=== PATIENT | female | born 1965 | race Caucasian/White ===

== ENCOUNTER 2018-03-11 09:05 | Day surgery (SDC) | payer OTHER, SELFPAY ==
[2018-03-11] VITALS (7 sets, daily range): BP systolic 133–151; BP diastolic 65–93; PULSE 80–100; RESP 16–18; TEMP 36.2–36.7; O2SAT 97–100; BMI 33.6
--- NOTE | 2018-03-11 | COLBX_PTH ---
PATIENT: JACKELIN KEY LOC: EN U#:[id number] AGE/SX: 52/F ROOM: RE03/11/[address]: Dr. Filomena Freedman MD : 1965 BED: DIS: 03/11/2018 SPEC #: [id number] RECD: 03/11/18 13:53 STATUS: GASTON RELashawn #: [id number] JUDY: 03/11/18 00:[address]: Filomena Freedman DEPT: SURGICAL PATHOLOGY RECD BY: Amilcar Lucio ENTERED: 03/11/18 13:53 SP TYPE: COLON BX OTHR DR: Dr. Allyson Hoang MD Tissues: A - Cecum, NOS B - Transverse colon Procedures: Surgery Specimen Level IV HEADER OPERATION: Colonoscopy PRE-OP DIAGNOSIS: Screening TISSUE SUBMITTED: A ? Cecum polyp biopsy, B ? Transverse colon polyp biopsy MICROSCOPIC DIAGNOSIS A. Cecum polyp, biopsy: Tubular adenoma. B. Transverse colon polyp, biopsy: Hyperplastic polyp. SJ:donna 03/12/18 MICROSCOPIC DESCRIPTION Slides are reviewed. GROSS DESCRIPTION A - Received in fixative is one container labeled with the patient's name and designated cecum polyp biopsy. The specimen consists of two irregular fragments of light fan soft tissue that in aggregate measure 0.8 x 0.3 x 0.1 cm. The specimen is totally submitted in one cassette. B - Received in fixative is one container labeled with the patient's name and designated transverse colon polyp biopsy. The specimen consists of one irregular fragment of light fan soft tissue that measures 0.4 x 0.3 x 0.1 cm. The specimen is totally submitted in one cassette. / ANTIONE:donna 03/11/18 TC:1 CPT: 87445 x2
--- NOTE | 2018-03-11 10:56 | PCM.OPRPT ---
Report of Operation Date of Procedure: 03/11/18 Pre-Operative Diagnosis: Screening for colon cancer Post-Operative Diagnosis: Small sessile polyp of the cecum and transverse colon, internal and external hemorrhoids Surgery/Procedure Performed:: Colonoscopy with biopsy Type of Anesthesia:: MAC Anesthesiologist: Shey Sanders Specimen's removed: 1. Cecal polyp, 2. Transverse colon polyp Estimated Blood Loss (mL): Minimal Description of Procedure: Procedure: Colonoscopy After reviewing the risks benefits, the patient was deemed in satisfactory condition to undergo procedure. After obtaining informed consent, the scope was passed under direct visualization. Throughout the procedure, the patient's blood pressure pulse and position saturations were monitored continuously anesthesia. The colonoscope was introduced through the anus and advanced to the cecum, identified by the IC valve and transillumination. The colonoscopy was performed without difficulty. The patient tolerated procedure well. Quality of bowel prep was good. Findings: The perianal and digital rectal exam revealed internal and external hemorrhoids.. Small sessile cecal polyp in small sessile transverse colon polyp were removed using cold forceps biopsies. Otherwise the colon (entire examined portion) appeared normal. Retroflexed view of the distal rectum and anal verge showed internal hemorrhoids-grade 1 Impression: 1. Small cecal and transverse colon polyp. Removed completely. 2. Internal and external hemorrhoids Recommendations: Await biopsies Repeat colonoscopy in 3-5 years for screening purposes, depending on biopsies - Complications None
--- NOTE | 2018-03-11 10:59 | OP.PCM_ITS ---
Report of Operation Date of Procedure: 03/11/18 Pre-Operative Diagnosis: Screening for colon cancer Post-Operative Diagnosis: Small sessile polyp of the cecum and transverse colon , internal and external hemorrhoids Surgery/Procedure Performed:: Colonoscopy with biopsy Type of Anesthesia:: MAC Anesthesiologist: Shey Sanders Specimen's removed: 1. Cecal polyp, 2. Transverse colon polyp Estimated Blood Loss (mL): Minimal Description of Procedure: Procedure: Colonoscopy After reviewing the risks benefits, the patient was deemed in satisfactory condition to undergo procedure. After obtaining informed consent, the scope was passed under direct visualization. Throughout the procedure, the patient's blood pressure pulse and position saturations were monitored continuously anesthesia. The colonoscope was introduced through the anus and advanced to the cecum, identified by the IC valve and transillumination. The colonoscopy was performed without difficulty. The patient tolerated procedure well. Quality of bowel prep was good. Findings: The perianal and digital rectal exam revealed internal and external hemorrhoids.. Small sessile cecal polyp in small sessile transverse colon polyp were removed using cold forceps biopsies. Otherwise the colon (entire examined portion) appeared normal. Retroflexed view of the distal rectum and anal verge showed internal hemorrhoids -grade 1 Impression: 1. Small cecal and transverse colon polyp. Removed completely. 2. Internal and external hemorrhoids Recommendations: Await biopsies Repeat colonoscopy in 3-5 years for screening purposes, depending on biopsies - Complications None
== END 2018-03-11 11:47 | disposition home or self-care (01) ==
LOC: EN 09:06 → AC 09:07
PROVIDERS: Family Provider Family Medicine; PCP Family Medicine; Visit Provider Surgery
PROC: 0DJD8ZZ Inspection of Lower Intestinal Tract, Via Natural or Artificial Opening Endoscopic (ICD-10-PCS; CPT 45378; principal; 2018-03-11 10:25)
DX: Z12.11 Encounter for screening for malignant neoplasm of colon (principal); D12.0 Benign neoplasm of cecum; K63.5 Polyp of colon; K64.8 Other hemorrhoids; K64.4 Residual hemorrhoidal skin tags; K43.2 Incisional hernia without obstruction or gangrene; F41.9 Anxiety disorder, unspecified; F32.9 Major depressive disorder, single episode, unspecified; F17.200 Nicotine dependence, unspecified, uncomplicated; Z79.899 Other long term (current) drug therapy
CPT/HCPCS: 45380; 88305; J7120; J2405

== ENCOUNTER 2018-04-09 07:44 | Day surgery (SDC) | payer OTHER, SELFPAY ==
[2018-04-09] VITALS (7 sets, daily range): BP systolic 125–144; BP diastolic 61–84; PULSE 79–104; RESP 14–18; TEMP 36.2–36.5; O2SAT 93–98; BMI 34.2
[2018-04-09 08:20] LABS: Hematocrit 47.3 % (37-47); Hemoglobin 15.7 g/dl (12.0-15.0); Mean Corp Hgb Conc 33.2 g/gl (32-36); Mean Corpuscular Hgb 29.9 pg (27.0-32.0); Mean Corpuscular Volume 90.1 fL (81-99); Mean Platelet Vol. 10.3 fl (6.2-12.0); Platelet Count 258 K/mm3 (150-450); RBC Distribution Width CV 13.5 % (11.6-14.6); RBC Distribution Width SD 43.9 fl (35.1-43.9); Red Blood Count 5.25 M/mm3 (4.2-5.4); White Blood Count 8.1 K/mm3 (4.4-11.0)
[2018-04-09 08:25] LABS: Scan Indicated on CBC? Y/N NO
--- NOTE | 2018-04-09 09:07 | PCM.HP.STD ---
History of Present Illness Date of Admission: 04/09/18 The patient is a 52 year old F presents for laparoscopic incisional hernia repair and umbilical hernia repair with mesh. Patient states she has not been having much problems with her ventral hernia recently. She did complete her colonoscopy which showed tubular adenoma at the cecum and a hyperplastic polyp at the transverse colon. Past Medical History Medical History: Medical History (Last Updated 02/26/18 @ 14:44 by Delphine Villalpando) Umbilical hernia K42.9 Allergies No Known Allergies Allergy (Verified 04/09/18 08:02) Home Medications: Ambulatory Orders Medication Instructions Recorded Venlafaxine XR [Effexor Xr] 75 mg PO DAILY 04/28/14 Surgical History: Surgical History (Last Updated 02/26/18 @ 14:44 by Delphine Villalpando) History of hysterectomy Z90.710 History of laparoscopic cholecystectomy Z90.49 Smoking Status: Current every day smoker Review of Systems Constitutional: Denies: Chills, Fever Eyes: Denies: Blurred vision HEENT: Denies: Difficulty Swallowing Cardiovascular: Denies: Chest Pain Respiratory: Denies: Shortness of breath at rest Gastrointestinal: Denies: Constipation, Nausea, Vomiting Genitourinary: Denies: Dysuria VTE Information - Inpt Only VTE Present on Admission: Yes VTE Mechan Device Prophylaxis: SCD's VTE Pharm Prophylaxis ordered?: No Reason prophylaxis not ordered:: Treatment Not Indicated - Physical Exam General: Alert, Oriented x3, Cooperative, No apparent distress HEENT: Atraumatic, Normocephalic Lungs: Normal air movement Cardiovascular: Regular rate Abdomen: Soft, Non Tender - No guarding or rebound, Non-Distended, Passing Flatus, Hernia - Superior umbilical ventral hernia, reducible Extremities: No clubbing, No cyanosis, No edema Vital Signs Temp Pulse Resp BP Pulse Ox 97.3 F L 81 18 143/61 H 96 04/09/18 08:05 04/09/18 08:05 04/09/18 08:05 04/09/18 08:05 04/09/18 08:05 Oxygen Delivery Method Room Air Weight: 224 lb 13.944 oz Body Mass Index (BMI) 34.2 Laboratory Tests Past 24 Hrs 04/09/18 08:00 WBC 8.1 RBC 5.25 Hgb 15.7 H Hct 47.3 H MCV 90.1 MCH 29.9 MCHC 33.2 RDW 13.5 RDW Differential 43.9 Plt Count 258 MPV 10.3 Assessment/Plan 52-year-old female with incisional and umbilical hernia. 1. Plan for laparoscopic incisional and umbilical hernia repair with mesh. Discussed the procedures including risk but not limited to infection (requiring mesh removal), injury to another organ (small bowel, etc.), seroma, hematoma, bleeding, and anesthesia. Patient and her have no further questions at this time. Filomena Freedman M.D. Pager: [phone] [facility] [address] [place] [address], [address] [place] [address] Office: [phone]
--- NOTE | 2018-04-09 09:11 | HP.PCM_ITS ---
History of Present Illness Date of Admission: 04/09/18 The patient is a 52 year old F presents for laparoscopic incisional hernia repair and umbilical hernia repair with mesh. Patient states she has not been having much problems with her ventral hernia recently. She did complete her colonoscopy which showed tubular adenoma at the cecum and a hyperplastic polyp at the transverse colon. Past Medical History Medical History: Medical History (Last Updated 02/26/18 @ 14:44 by Delphine Villalpando) Umbilical hernia K42.9 Allergies No Known Allergies Allergy (Verified 04/09/18 08:02) Home Medications: Ambulatory Orders Medication Instructions Recorded Venlafaxine XR [Effexor Xr] 75 mg PO DAILY 04/28/14 Surgical History: Surgical History (Last Updated 02/26/18 @ 14:44 by Delphine Villalpando) History of hysterectomy Z90.710 History of laparoscopic cholecystectomy Z90.49 Smoking Status: Current every day smoker Review of Systems Constitutional: Denies: Chills, Fever Eyes: Denies: Blurred vision HEENT: Denies: Difficulty Swallowing Cardiovascular: Denies: Chest Pain Respiratory: Denies: Shortness of breath at rest Gastrointestinal: Denies: Constipation, Nausea, Vomiting Genitourinary: Denies: Dysuria VTE Information - Inpt Only VTE Present on Admission: Yes VTE Mechan Device Prophylaxis: SCD's VTE Pharm Prophylaxis ordered?: No Reason prophylaxis not ordered:: Treatment Not Indicated - Physical Exam General: Alert, Oriented x3, Cooperative, No apparent distress HEENT: Atraumatic, Normocephalic Lungs: Normal air movement Cardiovascular: Regular rate Abdomen: Soft, Non Tender - No guarding or rebound, Non-Distended, Passing Flatus, Hernia - Superior umbilical ventral hernia, reducible Extremities: No clubbing, No cyanosis, No edema Vital Signs Temp Pulse Resp BP Pulse Ox 97.3 F L 81 18 143/61 H 96 04/09/18 08:05 04/09/18 08:05 04/09/18 08:05 04/09/18 08:05 04/09/18 08:05 Oxygen Delivery Method Room Air Weight: 224 lb 13.944 oz Body Mass Index (BMI) 34.2 Laboratory Tests Past 24 Hrs 04/09/18 08:00 WBC 8.1 RBC 5.25 Hgb 15.7 H Hct 47.3 H MCV 90.1 MCH 29.9 MCHC 33.2 RDW 13.5 RDW Differential 43.9 Plt Count 258 MPV 10.3 Assessment/Plan 52-year-old female with incisional and umbilical hernia. 1. Plan for laparoscopic incisional and umbilical hernia repair with mesh. Discussed the procedures including risk but not limited to infection (requiring mesh removal), injury to another organ (small bowel, etc.), seroma, hematoma, bleeding, and anesthesia. Patient and her have no further questions at this time. Filomena Freedman M.D. Pager: [phone] [facility] [address] [place] [address], [address] [place] [address] Office: [phone]
[2018-04-09] MEDS: Bupivacaine Mpf 0.5% 30 ML VIAL (09:13)
--- NOTE | 2018-04-09 09:20 | DCINST_ITS ---
Discharge Diet: Light diet - advance as tolerated Discharge Activity: May not drive while taking narcotic pain medications. May shower in (days): 1 Lifting Restrictions: no lifting >20 lbs for 4 weeks Call your doctor if your incision/area has: Continuous Slow Oozing, Sudden Increased Bleeding, Increased Pain/ Swelling, Increased Redness, Foul Smelling Discharge, Swelling at the incision site Call your doctor if you observe: Fever of 101 or Higher Additional Instructions: Okay to take ibuprofen along with the [place]. Avoid Tylenol since there is artery Tylenol in the [place]. [place] can cause constipation recommend taking daily stool softener i.e. Colace while taking the pain meds. Recommend starting some MiraLAX in 1-2 days if no bowel movement. If still no bowel movement after taking MiraLAX for a day recommend taking magnesium citrate half the bottle and waiting 4-6 hours if still no results take the other half the bottle. Allergies/Adverse Reactions: Allergies No Known Allergies Allergy (Verified 04/09/18 08:02) Medications to take at Discharge Venlafaxine XR [Effexor Xr] 75 mg PO DAILY 04/28/14 Hydrocodone Bitart/Apap 5-325 [[place] 5MG-325MG] 1 - 2 tablet PO Q6H PRN PRN 3 Days #20 tablet 04/09/18 The following prescriptions were given: Hydrocodone Bitart/Apap 5-325 [[place] 5MG-325MG] 1 - 2 tablet PO Q6H PRN PRN 3 Days #20 tablet PRN Reason: Pain Primary Care Physician: Allyson Hoang MD [Primary Care Provider] - Test Results: Test results from this visit will be discussed in further detail at your follow- up appointment, if applicable. Please Follow Up With: Filomena Freedman MD - after 5PM/weekend call [phone] with any concerns When: call office for appt in 2 weeks Proposed Discharge Date: 04/09/18
[2018-04-09] MEDS: Cefazolin 2 GM in 0.9% Normal Saline 100 ML IV (09:33)
--- NOTE | 2018-04-09 10:43 | PCM.OPRPT ---
Report of Operation Date of Procedure: 04/09/18 Pre-Operative Diagnosis: Ventral, incisional hernia Post-Operative Diagnosis: Supraumbilical ventral hernia Surgery/Procedure Performed:: Laparoscopic ventral hernia repair with mesh kieselguhr regenerator operator: Emilie Frausto Type of Anesthesia:: MAC Anesthesiologist: Pedro Landeros Special Medications: Ancef 2 g IV ?1 Specimen's removed: None Estimated Blood Loss (mL): <10 cc Fluids Replaced: 1000 cc Description of Procedure: Indications this is a 52 year-old female who had a symptomatic ventral hernia and a possible incisional hernia seen on CT at umbilicus. Laparoscopic ventral hernia repair with mesh was elected. Description procedure: The patient was placed on operating table in supine position. General Anesthesia was induced. A timeout was completed verifying correct patient, procedure, site, position, social, and special equipment prior to beginning procedure. The abdomen was prepped and draped in usual sterile fashion. An incision was made in the epigastric midline. The fascia was elevated and incised. The peritoneum was elevated and incised. Entry into the peritoneum was confirmed visually and no bowel was noted in the vicinity of the incision. Cartwright trocar was placed. The abdomen was insufflated with carbon dioxide to a pressure of 12-15 mmHg. Patient tolerated insufflation well. The laparoscope was then inserted and abdomen inspected. No injuries from initial trocar placement were noted. Additional trochars were then inserted in the following locations 5 mm trocar in the left upper quadrant and left lower quadrant. The abdomen was inspected no abnormalities were found. The ventral hernia was inspected and herniated contents removed with gentle pulling and pressure. The hernia defect was approximately 2 x 2 centimeters. This was closed with an 0 PDS in a [id number] after making a stab incision at the skin. The ventral light ST mesh 11.4 cm x 11.4 cm echo mesh was showed chosen for repair. Mesh was rolled into a cylinder in place through the Cartwright trocar. The inflation tubing was grasped with a suture passer in the middle of the hernia defect and pulled up against the abdominal wall. The balloon was deployed and the mesh was laying flat against the abdominal wall. This securestrap stapler was used to secure the mesh in place. The balloon deployment system was removed from the mesh and the abdomen. The mesh was further secured in place. Secondary trochars removed under direct vision. No bleeding was noted the trocar sites. The laparoscope was withdrawn and umbilical trocar removed. The abdomen was allowed to collapse. The fascia of the 12 mm trocar was closed with a beeezz-hs-woeup 0 Vicryl suture. The skin was closed with sutures of 4-0 Monocryl and Steri-Strips. The patient was extubated. The patient tolerated procedure well and was taken to the postanesthesia care unit in stable condition. Grafts/Implants Used: Ventral light ST mesh w echo PS lot [id number] 11.4cmx11.4cm - Complications none
--- NOTE | 2018-04-09 10:48 | OP.PCM_ITS ---
Report of Operation Date of Procedure: 04/09/18 Pre-Operative Diagnosis: Ventral, incisional hernia Post-Operative Diagnosis: Supraumbilical ventral hernia Surgery/Procedure Performed:: Laparoscopic ventral hernia repair with mesh planner/scheduler: Emilie Frausto Type of Anesthesia:: MAC Anesthesiologist: Pedro Landeros Special Medications: Ancef 2 g IV ?1 Specimen's removed: None Estimated Blood Loss (mL): <10 cc Fluids Replaced: 1000 cc Description of Procedure: Indications this is a 52 year-old female who had a symptomatic ventral hernia and a possible incisional hernia seen on CT at umbilicus. Laparoscopic ventral hernia repair with mesh was elected. Description procedure: The patient was placed on operating table in supine position. General Anesthesia was induced. A timeout was completed verifying correct patient, procedure, site, position, social, and special equipment prior to beginning procedure. The abdomen was prepped and draped in usual sterile fashion. An incision was made in the epigastric midline. The fascia was elevated and incised. The peritoneum was elevated and incised. Entry into the peritoneum was confirmed visually and no bowel was noted in the vicinity of the incision. Cartwright trocar was placed. The abdomen was insufflated with carbon dioxide to a pressure of 12-15 mmHg. Patient tolerated insufflation well. The laparoscope was then inserted and abdomen inspected. No injuries from initial trocar placement were noted. Additional trochars were then inserted in the following locations 5 mm trocar in the left upper quadrant and left lower quadrant. The abdomen was inspected no abnormalities were found. The ventral hernia was inspected and herniated contents removed with gentle pulling and pressure. The hernia defect was approximately 2 x 2 centimeters. This was closed with an 0 PDS in a mlxovn-if-gmjns after making a stab incision at the skin. The ventral light ST mesh 11.4 cm x 11.4 cm echo mesh was showed chosen for repair. Mesh was rolled into a cylinder in place through the Cartwright trocar. The inflation tubing was grasped with a suture passer in the middle of the hernia defect and pulled up against the abdominal wall. The balloon was deployed and the mesh was laying flat against the abdominal wall. This securestrap stapler was used to secure the mesh in place. The balloon deployment system was removed from the mesh and the abdomen. The mesh was further secured in place. Secondary trochars removed under direct vision. No bleeding was noted the trocar sites. The laparoscope was withdrawn and umbilical trocar removed. The abdomen was allowed to collapse. The fascia of the 12 mm trocar was closed with a wzqpfj-fr-wfshy 0 Vicryl suture. The skin was closed with sutures of 4- 0 Monocryl and Steri-Strips. The patient was extubated. The patient tolerated procedure well and was taken to the postanesthesia care unit in stable condition. Grafts/Implants Used: Ventral light ST mesh w echo PS lot [id number] 11.4cmx11.4cm - Complications none
[2018-04-09] MEDS: HYDROcodone Bitartrate/Apap 5/325 Tablet PO (12:28)
== END 2018-04-09 13:06 | disposition home or self-care (01) ==
LOC: SDC 07:46 → AC 07:46
PROVIDERS: Anesthesiology; Family Provider Family Medicine; PCP Family Medicine; Visit Provider Surgery
PROC: 0WQF4ZZ Repair Abdominal Wall, Percutaneous Endoscopic Approach (ICD-10-PCS; CPT 49652; principal; 2018-04-09 09:10)
DX: K43.9 Ventral hernia without obstruction or gangrene (principal); F41.9 Anxiety disorder, unspecified; F32.9 Major depressive disorder, single episode, unspecified; F17.200 Nicotine dependence, unspecified, uncomplicated; Z79.899 Other long term (current) drug therapy
CPT/HCPCS: 49652; 85027; 93005; J7120; J2405

== ENCOUNTER → 2019-06-02 | Outpatient (CLI) | payer OTHER, SELFPAY ==
--- NOTE | 2019-06-02 09:29 | BI_ITS ---
MAMMOGRAPHY - BILATERAL SCREENING REASON FOR EXAM: Female, 53 years old. Routine annual screening examination. PERTINENT HISTORY: Non-contributory. TECHNIQUE: Digital bilateral breast samanta (3D mammographic acquisition) in the CC and MLO projections. 2-D mediolateral oblique (MLO) and craniocaudad (CC) views of both breasts were obtained. CAD: Full Field Digital Mammography with Computer Added Detection was performed. COMPARISON: Comparison is made with prior study dated October 11, 2011. FINDINGS: Breast Composition: There are scattered areas of fibroglandular density. There are no dominant masses or suspicious calcifications. No other significant abnormalities are identified. There has been no significant change since the prior study. BI/SCREEN MAMM (CAD) W/SAMANTA BILAT IMPRESSION: Stable bilateral screening mammogram. Yearly follow-up mammogram recommended. (A) ASSESSMENT CATEGORY: BIRADS Category 1: Negative. A letter regarding these results will be sent to the patient by the facility within 30 days. Approximately 10% of breast cancers are not detected by mammography. A normal mammogram should not delay biopsy of a clinically suspicious abnormality. [id number] Electronically Signed: Juan Crockett, at 11:14 EDT , Service support ,
--- NOTE | 2019-06-02 09:34 | BD_ITS ---
STUDY: DUAL ENERGY X-RAY ABSORPTIOMETRY / DXA REASON FOR EXAM: Female, 53 years old. Early menopause. TECHNIQUE: Bone Mineral Density (BMD) measurements of lumbar spine and bilateral hips were obtained. COMPARISON: None. FINDINGS: Lumbar Spine (L1-L4): g/cm2 (1.069) / T-score (-0.9) / Z-score (-0.2) Findings are suggestive of normal bone density with a low fracture risk. Left Femur Total: g/cm2 (0.994) / T-score (-0.1) / Z-score (0.5) Left Femoral Neck: g/cm2 (0.970) / T-score (-0.5) / Z-score (0.5) Right Femur Total: g/cm2 (0.967) / T-score (-0.3) / Z-score (0.3) Right Femoral Neck: g/cm2 (1.003) / T-score (-0.3) / Z-score (0.7) BD/Dexa Bone Density Study IMPRESSION: The patient is considered normal as outlined below according to World Clayton Organization (WHO) criteria with a low fracture risk. Reference Information: The T-score is the number of standard deviations above or below the standard which is normal for young adults at their peak bone mineral density. The World Health Organization (WHO) interprets the T-scores as follows: Above -1 Normal bone density Between -1 and -2.5 Osteopenia Equal to / or below -2.5 Osteoporosis As a practical clinical guideline, osteopenia may be graded as follows: Mild -1 through -1.5 Moderate -1.6 through -2.0 Severe -2.1 through -2.4 The Z-score is the number of standard deviations above or below age-matched controls. A Z-score of less than -1.5 would be considered abnormal. References: 1. NIH Osteoporosis and Related Bone Diseases http://www.osteo.org 2. International Society for Clinical Densitometry http://www.iscd.org 3. National Osteoporosis Foundation http://www.nof.org Electronically Signed: Juan Crockett, at 15:44 EDT , Service support ,
== END | disposition home or self-care (01) ==
LOC: OPBD 09:25
PROVIDERS: Family Provider Family Medicine; PCP Family Medicine; Referring Provider Family Medicine; Visit Provider Family Medicine
DX: Z12.31 Encounter for screening mammogram for malignant neoplasm of breast (principal); Z78.0 Asymptomatic menopausal state
CPT/HCPCS: 77063; 77067; 77080

== ENCOUNTER → 2021-01-12 14:59 | Outpatient (CLI) | payer OTHER, SELFPAY ==
--- NOTE | 2021-01-12 15:14 | BI_ITS ---
MAMMOGRAPHY - BILATERAL SCREENING 3-D TOMOSYNTHESIS REASON FOR EXAM: Female, 55 years old. SCREENING PERTINENT HISTORY: No significant family history. TECHNIQUE: 2-D mammograms and 3-D Tomosynthesis of the breast (s) were performed. CAD was performed. COMPARISON: FINDINGS: The breast composition is composed of scattered fibroglandular density. Scattered benign calcifications are seen. No dense spiculated masses or suspicious microcalcifications are identified. No architectural distortion is identified. There is no skin thickening or retraction. There has been no significant change since the prior study. BI/SCRN MAMM (CAD)W/SAMANTA BILAT IMPRESSION: No mammographic signs of malignancy. Routine yearly mammograms recommended. ASSESSMENT CATEGORY: BIRADS Category 1: Negative. A letter regarding these results will be sent to the patient by the facility within 30 days. FOLLOW UP RECOMMENDATION: Yearly follow up mammogram recommended. (A) Approximately 10% of breast cancers are not detected by mammography. A normal mammogram should not delay biopsy of a clinically suspicious abnormality. Electronically Signed: Harry Schultz MD at 9:09 EDT , Service support ,
== END ==
PROVIDERS: PCP Family Medicine; Referring Provider Family Medicine; Visit Provider Family Medicine
DX: Z12.31 Encounter for screening mammogram for malignant neoplasm of breast (principal)
CPT/HCPCS: 77063; 77067

== ENCOUNTER → 2022-08-02 | Outpatient (CLI) | payer OTHER, SELFPAY ==
--- NOTE | 2022-08-02 09:31 | BI_ITS ---
MAMMOGRAPHY - BILATERAL SCREENING REASON FOR EXAM: Female, 56 years old. Routine annual screening examination. PERTINENT HISTORY: Non-contributory. TECHNIQUE: Digital bilateral breast samanta (3D mammographic acquisition) in the CC and MLO projections. 2-D mediolateral oblique (MLO) and craniocaudad (CC) views of both breasts were obtained. CAD: Full Field Digital Mammography with Computer Added Detection was performed. COMPARISON: Comparison is made with prior study dated 01/12/2021 and 06/02/2019. FINDINGS: Breast Composition: There are scattered areas of fibroglandular density. There are no dominant masses or suspicious calcifications. No other significant abnormalities are identified. There has been no significant change since the prior study. BI/SCRN MAMM (CAD)W/SAMANTA BILAT IMPRESSION: Stable bilateral screening mammogram. Yearly follow-up mammogram recommended. (A) ASSESSMENT CATEGORY: BIRADS Category 1: Negative. A letter regarding these results will be sent to the patient by the facility within 30 days. Approximately 10% of breast cancers are not detected by mammography. A normal mammogram should not delay biopsy of a clinically suspicious abnormality. [id number] Electronically Signed: Juan Crockett MD at 10:22 EST ,
== END | disposition home or self-care (01) ==
LOC: OPBI 09:29
PROVIDERS: PCP Family Medicine; Visit Provider Family Medicine
DX: Z12.31 Encounter for screening mammogram for malignant neoplasm of breast (principal)
CPT/HCPCS: 77063; 77067

== ENCOUNTER 2023-03-31 06:42 | Day surgery (SDC) | payer OTHER, SELFPAY ==
[2023-03-31] VITALS (7 sets, daily range): BP systolic 108–128; BP diastolic 70–89; PULSE 70–100; RESP 16–18; TEMP 36.2–36.8; O2SAT 97–99; BMI 30.4
--- NOTE | 2023-03-31 | COLBX_PTH ---
PATIENT: JACKELIN KEY LOC: EN U#:[id number] AGE/SX: 57/F ROOM: RE03/31/[address]: Dr. Filomena Freedman MD : 1965 BED: DIS: 03/31/2023 SPEC #: [id number] RECD: 03/31/23 10:53 STATUS: GASTON RELashawn #: [id number] JUDY: 03/31/23 00:[address]: Filomena Freedman DEPT: SURGICAL PATHOLOGY RECD BY: Amilcar Lucio ENTERED: 03/31/23 10:53 SP TYPE: COLON BX OTHR DR: Dr. Allyson Hoang MD Tissues: Rectum, NOS Procedures: Surgery Specimen Level IV HEADER OPERATION: Colonoscopy - open access (MAC) PRE-OP DIAGNOSIS: History of colonic polyps TISSUE SUBMITTED: Rectal polyp MICROSCOPIC DIAGNOSIS Rectal polyp, biopsy: Fragments of hyperplastic polyp. AM:donna 04/01/2023 MICROSCOPIC DESCRIPTION Slides are reviewed. GROSS DESCRIPTION Received in fixative is one container labeled with the patient's name and designated rectal polyp. The specimen consists of multiple irregular fragments of light fan soft tissue that in aggregate measure 1.0 x 0.5 x 0.1 cm. The specimen is totally submitted in one cassette. / SJ:rg 03/31/2023 TC:5 CPT: 67060
[2023-03-31] MEDS: Lactated Ringers 1,000 ML 15 ML IV (07:03)
--- NOTE | 2023-03-31 07:25 | HP.PCM_ITS ---
[facility] - General General Date of Service: 03/31/23 [facility] Narrative JACKELIN KEY, is a 57 F who presents for a screening colonoscopy due to history of colon polyps. Patient last colonoscopy was 03/2018 patient had 2 polyps at that time. Patient denies any family history of colon cancer. Patient denies any chronic abdominal pain/nausea/vomiting/reflux. Patient's bowel movements daily denies any blood. [facility] Medical History (Updated 03/31/23 @ 07:[address] Filomena Freedman MD) Alcohol use Anxiety History of colonic polyps Migraine headache Migraine without status migrainosus, not intractable Shortness of breath on exertion Smoker Wears glasses Home Medications venlafaxine 75 mg capsule,extended release 24 hr 75 mg PO DAILY 04/28/14 [History Last Taken 03/31/23] multivitamin 1 tab PO DAILY 01/30/23 [History Last Taken Unknown] sumatriptan succinate 100 mg tablet See Rx Instructions PO .COMPLEX 01/30/23 [History Last Taken Unknown] Allergy/AdvReac Type Severity Reaction Status Date / Time No Known Allergies Allergy Verified 03/25/23 14:53 Family History Mother Diabetes Father Hypertension Surgical History (Updated 03/25/23 @ 15:00 by Katelynn Aviles) History of colonoscopy History of hysterectomy History of laparoscopic cholecystectomy Hx of hernia repair Social History (Updated 01/30/23 @ 16:12 by Krystle Clayton) household members: spouse current occupational status: employed current occupation: [employer] Smoking Status: Current every day smoker tobacco type: cigarettes alcohol intake: never substance use type: does not use Past Medical/Surgical History Planned Operation Planned Operative Procedure/s: CSCOPE OA S.O.S: No Previous Hospitalizations/Surgeries HX Hospitalizations: No HX of Surgeries: CARY TUBAL ABLATION HYSTERECTOMY 2013 Any Problems With Anesthesia: No You/Your Family Experience Fever (Hyperthermia) With Anes: No Cholinesterase deficiency: No Cardiovascular Hx Chest Pain within Last 2 months: No Hx of Irregular Heartbeat and/or Afib: No Hx Heart Attack: No Hx Congestive Heart Failure: No Hx Rheumatic Fever: No Hx Hypertension: No Hx Internal Defibrillator: No Hx Pacemaker: No Hx Cardiac Catheterization: No Hx Cardiac Surgery/Stents/Etc.: No Hx Stress Test: Yes ([facility] >10 YRS AGO, OK PER PT) Hx Pain in Legs when Walking/Leg Cramps: No Respiratory Chronic Cough: No HX of Shortness of Breath: No (ABLE TO WALK UP TWO FLIGHTS OF STAIRS) Hoarseness: No Hx Chronic Obstructive Pulmonary Disease (COPD): No Hx Asthma: No Hx Emphysema: No Hx Sleep Apnea: No CPAP: No BIPAP: No Hx Respiratory Tract Infection/Cold (presently): No Do You Snore Loudly (louder than talking or can be heard): Yes Do You Often Feel Tired/ Fatigued/ Sleepy Dring Daytime?: No Has Anyone Observed You Stop Breathing During Sleep?: No Result (for STOP score): Negative Hx Smoking: Yes (SMOKES 7 CIGS A DAY OR SO) Smoking Status: Current every day smoker Gastrointestinal Hx Gastroesophageal Reflux: No Hx Gastrointestinal Disorders: No Hx Gastrointestinal Bleed: No Hx Ulcer: No Hx Hiatal Hernia: No Difficulty Chewing/Swallowing: No Special diet followed at home: No Hx Unplanned Weight Loss of 20#: No HX Unplanned Weight Gain of 20#: No Neurological Hx Seizures: No HX Syncope/Blackout Spells/Unconsciousness: No Hx Transient Ischemic Attacks (TIA): No Hx Multiple Sclerosis: No Hx Parkinson's Disease: No Hx Head/Neck Injury: No Hx Headaches: No Hx Back Injury/Pain: No Recent Onset of Speech Difficulty: No Restless Legs: No Does patient have nerve stimulator: No Blood Disorder Hx Leukemia: No Bleeding Tendencies: No Hx Deep Vein Thrombosis: No Hx High Cholesterol: No Blood Transmitted Disease: No Hx Hepatitis: No Hx Cirrhosis: No Hx Anemia: No Hx Blood Disorders: No Reproduction : No Is Patient Lactating: No Hx Hysterectomy: Yes Hx Tubal Ligation: Yes Are You Post Menopause: Yes Genitourinary Hx Renal Disease: No Musculoskeletal Hx Arthritis: No Hx Rheumatoid Arthritis: No Hx Gout: No Recent Onset of an Orthopedic Problem: No Endocrine Hx Diabetes: No Thyroid Disease: No Hx Steroid Therapy: No Psycho/Social Hx Substance Use: No Hx Alcohol Use: No Hx Anxiety: Yes Hx Depression: Yes (ON MEDICATION) Mental Illness: No Hx Dementia: No Miscellaneous Hx Cancer: No Recent Exposure to Contagious Disease: No Hx of C-Diff: No Any Loose Teeth: No Allergies No Known Allergies Allergy (Verified 03/25/23 14:53) Discharge Is Pt Admitted From a [facility], or a Residential: No After D/C, Where Do you Plan to Go: Return Home Vital Signs Vital Signs Vital Signs: 03/31/23 07:05 03/31/23 07:05 Temperature 97.8 F Temperature Source Temporal Pulse Rate 100 Respiratory Rate 18 Respiratory Pattern Normal Blood Pressure 128/89 H Blood Pressure Mean 102 Blood Pressure Source Monitor Blood Pressure Position Semi-Fowlers Blood Pressure Location Left Arm Pulse Ox 99 Oxygen Delivery Method Room Air Weight Weight: 200 lb Body Mass Index (BMI) 30.4 Physical Exam Const alert, oriented x3 and no apparent distress HEENT normocephalic and head/scalp atraumatic Resp normal respiratory effort Cardio regular rate GI soft to palpation and non-tender; Negative for non-distended Palpation: Negative for guarding Extremity no clubbing, cyanosis or edema Neuro CN's II-XII intact bilaterally Psych mental status grossly normal Assessment & Plan Assessment/Plan (1) History of colonic polyps: Surgery Risks - Colonoscopy I discussed with the patient the risks of the procedure: Yes Risks Include but are not Limited To: Risks include but are not limited to: Bleeding, perforation requiring further surgery, inability to complete colonoscopy requiring barium enema.
--- NOTE | 2023-03-31 09:10 | OP.COLON_ITS ---
Patient Name: Debbi Diggs Procedure Date: 03/31/2023 8:13 AM Date of : 1965 Age: 57 Procedure: Colonoscopy Indications: High risk colon cancer surveillance: Personal history of adenoma less than 10 mm in size Providers: Filomena Freedman MD Referring MD: Filomena Freedman MD Medicines: Monitored Anesthesia Care Patient Profile: This is a 57 year old female. Last Colonoscopy: 2017. Complications: No immediate complications. Procedure: Pre-Anesthesia Assessment: - Prior to the procedure, a History and Physical was performed, and patient medications and allergies were reviewed. The patient's tolerance of previous anesthesia was also reviewed. The risks and benefits of the procedure and the sedation options and risks were discussed with the patient. All questions were answered, and informed consent was obtained. Prior Anticoagulants: The patient has taken no previous anticoagulant or antiplatelet agents. ASA Grade Assessment: Per anesthesia. After reviewing the risks and benefits, the patient was deemed in satisfactory condition to undergo the procedure. After I obtained informed consent, the scope was passed under direct vision. Throughout the procedure, the patient's blood pressure, pulse, and oxygen saturations were monitored continuously. The pediatric colonoscope was introduced through the anus and advanced to the cecum, identified by the appendiceal orifice, ileocecal valve and palpation. The colonoscopy was performed with ease. The colonoscopy was somewhat difficult due to a tortuous colon. Successful completion of the procedure was aided by changing the patient to a supine position. Scope In: 8:28:37 AM Scope Withdrawal Time 0 hours 13 minutes 36 seconds Scope Out: 8:59:32 AM Total Procedure Duration Time 0 hours 30 minutes 55 seconds Findings: Hemorrhoids were found on perianal exam. Non-bleeding external and internal hemorrhoids were found. The hemorrhoids were small and Grade I (internal hemorrhoids that do not prolapse). Five sessile polyps were found in the rectum. The polyps were less than 5 mm in size. These polyps were removed with a cold biopsy forceps. Resection and retrieval were complete. The exam was otherwise without abnormality. Impression: - Hemorrhoids found on perianal exam. - Non-bleeding external and internal hemorrhoids. - Five less than 5 mm polyps in the rectum, removed with a cold biopsy forceps. Resected and retrieved. - The examination was otherwise normal. Recommendation: - Discharge patient to home. - Resume previous diet. - Continue present medications. - Await pathology results. - Repeat colonoscopy in 5-10 years for surveillance based on pathology results. Procedure Code(s): --- Professional --- 71742, PT, Colonoscopy, flexible; with biopsy, single or multiple Diagnosis Code(s): --- Professional --- Z86.010, Personal history of colonic polyps K64.0, First degree hemorrhoids K62.1, Rectal polyp CPT copyright 2017 [employer]. All rights reserved. The codes documented in this report are preliminary and upon remote coders review may be revised to meet current compliance requirements. MD Filomena Rincon MD 03/31/2023 9:10:32 AM This report has been signed electronically. Number of Addenda: 0 Note Initiated On: 03/31/2023 8:13 AM
--- NOTE | 2023-03-31 09:11 | OP.CCLET_ITS ---
03/31/2023 Allyson Hoang [address] [place] [address] Re : Colonoscopy procedure for Debbi Diggs Dear Dr. Hoang This procedure was performed on Friday, March 31, 2023. My impressions and recommendations are as follows: Impressions : - Hemorrhoids found on perianal exam. - Non-bleeding external and internal hemorrhoids. - Five less than 5 mm polyps in the rectum, removed with a cold biopsy forceps. Resected and retrieved. - The examination was otherwise normal. Recommendations : - Discharge patient to home. - Resume previous diet. - Continue present medications. - Await pathology results. - Repeat colonoscopy in 5-10 years for surveillance based on pathology results. My findings are described in the full procedure note, which is enclosed. If I can be of further assistance, please feel free to contact me at Doctor phone number(s): , Work: . Sincerely, MD Filomena Rincon MD 03/31/2023 9:10:32 AM This report has been signed electronically.
== END 2023-03-31 09:49 | disposition home or self-care (01) ==
LOC: EN 06:44 → AC 06:45
PROVIDERS: PCP Family Medicine; Referring Provider Family Medicine; Visit Provider Surgery
PROC: 0DJD8ZZ Inspection of Lower Intestinal Tract, Via Natural or Artificial Opening Endoscopic (ICD-10-PCS; CPT 45378; principal; 2023-03-31 08:10)
DX: Z12.11 Encounter for screening for malignant neoplasm of colon (principal); K62.1 Rectal polyp; F17.210 Nicotine dependence, cigarettes, uncomplicated; Z86.010 Personal history of colon polyps; Z79.899 Other long term (current) drug therapy; F41.9 Anxiety disorder, unspecified; K64.4 Residual hemorrhoidal skin tags; K64.0 First degree hemorrhoids
CPT/HCPCS: 45380; 88305; J7120; J2405

== ENCOUNTER → 2024-01-28 | Outpatient (CLI) | payer OTHER, SELFPAY ==
--- NOTE | 2024-01-28 15:02 | BI_ITS ---
MAMMOGRAPHY - BILATERAL SCREENING REASON FOR EXAM: Female, 58 years old. Routine annual screening examination. PERTINENT HISTORY: Non-contributory. TECHNIQUE: Digital bilateral breast samanta (3D mammographic acquisition) in the CC and MLO projections. 2-D mediolateral oblique (MLO) and craniocaudad (CC) views of both breasts were obtained. CAD: Full Field Digital Mammography with Computer Added Detection was performed. COMPARISON: Comparison is made with prior study dated August 02, 2022 and January 12, 2021. FINDINGS: Breast Composition: There are scattered areas of fibroglandular density. There are no dominant masses or suspicious calcifications. No other significant abnormalities are identified. There has been no significant change since the prior study. BI/SCRN MAMM (CAD)W/SAMANTA BILAT IMPRESSION: Stable bilateral screening mammogram. Yearly follow-up mammogram recommended. (A) ASSESSMENT CATEGORY: BIRADS Category 1: Negative. A letter regarding these results will be sent to the patient by the facility within 30 days. Approximately 10% of breast cancers are not detected by mammography. A normal mammogram should not delay biopsy of a clinically suspicious abnormality. [id number] Electronically Signed: Juan Crockett MD at 15:43 EDT ,
== END | disposition home or self-care (01) ==
LOC: OPBI 15:02
PROVIDERS: PCP Family Medicine; Referring Provider Family Medicine; Visit Provider Family Medicine
DX: Z12.31 Encounter for screening mammogram for malignant neoplasm of breast (principal)
CPT/HCPCS: 77063; 77067

== ENCOUNTER → 2025-04-08 | Outpatient (CLI) | payer OTHER, SELFPAY ==
[2025-04-08 11:42] LABS: Anion Gap 10 (5-15); BUN 12 mg/dL (4-19); BUN/Creat Ratio 16.3 RATIO (10-20); Calcium,Total 10.1 mg/dL (7.6-11.0); Carbon Dioxide 22.4 mmol/L (21.0-32.0); Chloride 107 mmol/L (98-108); Glucose 101 mg/dL (70-99); Potassium 4.2 mmol/L (3.3-5.1)
[2025-04-08 12:06] LABS: Cholesterol 229 mg/dL (<=200); Low Density Lipoprotein Calc. 145 mg/dL; Triglycerides 158 mg/dL; Very Low Density Lipoprotein 32 mg/dL (5-40); cholesterol:hdl ratio screen 4.34
== END | disposition home or self-care (01) ==
LOC: MFPLAB 09:31
PROVIDERS: PCP Nurse Practitioner Family; Referring Provider Nurse Practitioner Family; Visit Provider Nurse Practitioner Family
DX: Z13.1 Encounter for screening for diabetes mellitus (principal); Z13.220 Encounter for screening for lipoid disorders
CPT/HCPCS: 36415; 80048; 80061

== ENCOUNTER → 2025-04-15 | Outpatient (CLI) | payer OTHER, SELFPAY | END | disposition home or self-care (01) | LOC: MFPLAB 10:12 | PROVIDERS: PCP Nurse Practitioner Family; Visit Provider Nurse Practitioner Family | DX: R73.01 Impaired fasting glucose (principal) | CPT/HCPCS: 36415; 83036 ==

== ENCOUNTER → 2025-04-28 | Outpatient (CLI) | payer OTHER, SELFPAY ==
--- NOTE | 2025-04-28 14:35 | BI_ITS ---
EXAM: SCRN MAMM (CAD)W/SAMANTA BILAT DATE: 04/28/2025 CLINICAL HISTORY: F, Age 59 y/o , SCREENING No family history. TECHNIQUE: SCRN MAMM (CAD)W/SAMANTA BILAT COMPARISON: Prior exam(s) dated January 28, 2024.. FINDINGS: TISSUE DENSITY: There are scattered areas of fibroglandular density. Bilateral Breast Mammographic Findings: No significant masses, calcifications or other abnormalities are identified. No suspicious masses, areas of developing architectural distortion, or suspicious calcifications. There has been no significant interval change. BI/SCRN MAMM (CAD)W/SAMANTA BILAT IMPRESSION: Stable bilateral screening mammogram. OVERALL FINAL ASSESSMENT BI-RADS 1: NEGATIVE. RECOMMENDATION: Routine annual follow-up in 1 Year A letter with findings and recommendations will be mailed to the patient. Reading Location: [id number]
== END | disposition home or self-care (01) ==
LOC: OPBI 14:34
PROVIDERS: PCP Nurse Practitioner Family; Referring Provider Nurse Practitioner Family; Visit Provider Nurse Practitioner Family
DX: Z12.31 Encounter for screening mammogram for malignant neoplasm of breast (principal)
CPT/HCPCS: 77063; 77067